=== PATIENT | female | born 1985 | race Caucasian/White ===

== ENCOUNTER 2019-09-29 12:40 | Emergency (ER) | payer OTHER ==
[~2019-09-29] VITALS: Ht 172.7 cm; Wt 99.8 kg
--- OUTSIDE RECORDS SUMMARY | 2019-09-29 12:44 | XMS ---
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 Tarun has no Care Guidelines for this patient. Jacki VISIT COUNT (12 MO.) 1 FREDY Nguyễn TOTAL 1 NOTE: Visits indicate total known visits. ED/UCC VISIT TRACKING (12 MO.) 09/29/2019 12:41 [facility] [place] TYPE: Emergency COMPLAINT: - SORE THROAT, COUGH INPATIENT VISIT TRACKING (12 MO.) No inpatient visits to display in this time frame [email or web address]
[2019-09-29] MEDS ORDERED: BUPROPION XL150 MG PO (13:00)
[2019-09-29] MEDS ORDERED: FLUOXETINE HCL20 MG PO (13:01)
[2019-09-29] MEDS ORDERED: NALTREXONE HCL50 MG PO (13:01)
== END 2019-09-29 14:42 | disposition home or self-care (01) ==
LOC: ED 12:40
DX: J06.9 Acute upper respiratory infection, unspecified (principal); L60.0 Ingrowing nail; F17.200 Nicotine dependence, unspecified, uncomplicated; Z88.0 Allergy status to penicillin; Z88.5 Allergy status to narcotic agent; Z79.899 Other long term (current) drug therapy
CPT/HCPCS: 99283

== ENCOUNTER 2019-10-08 16:14 | Emergency (ER) | payer OTHER ==
[~2019-10-08] VITALS: Ht 172.7 cm; Wt 99.8 kg
[~2019-10-08 16:14] MED LIST: BUPROPION XL150 MG PO; FLUOXETINE HCL20 MG PO; NALTREXONE HCL50 MG PO
--- OUTSIDE RECORDS SUMMARY | 2019-10-08 16:18 | XMS ---
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 Tarun has no Care Guidelines for this patient. [facility] VIS[facility] (12 MO.) [facility] NOTE: Visits indicate total known visits. ED/C VISIT TRACKING (12 MO.) [facility] COMPLAINT: - FLU SYMPTOMS, NAUSEA 09/29/2019 12:[address] [facility] [facility] [place] TYPE: Emergency COMPLAINT: - SORE THROAT, COUGH DIAGNOSES: - Other usp (current) drug therapy - Allergy status to penicillin - Acute upper respiratory infection, unspecified - Allergy status to narcotic agent status - Ingrowing nail - Nicotine dependence, unspecified, uncomplicated - Cough INPATIENT VISIT TRACKING (12 MO.) No inpatient visits to display in this time frame [email or web address]
[2019-10-08] MEDS ORDERED: DOXYCYCLINE HY100 MG PO (18:04)
[2019-10-08] MEDS ORDERED: TESSALON PERLE100 MG PO (18:04)
== END 2019-10-08 18:15 | disposition home or self-care (01) ==
LOC: ED 16:14
DX: J20.9 Acute bronchitis, unspecified (principal); F17.200 Nicotine dependence, unspecified, uncomplicated
CPT/HCPCS: 71046; 99283-25; 99406

== ENCOUNTER 2023-02-10 08:05 | Emergency (ER) | payer SELFPAY ==
[~2023-02-10] VITALS: Ht 172.7 cm; Wt 88.9 kg
[~2023-02-10 08:05] MED LIST changes: +DOXYCYCLINE HY100 MG PO; +TESSALON PERLE100 MG PO
[2023-02-10] MEDS ORDERED: BACTRIM DS TAB1 EACH PO (09:12)
[2023-02-10] MEDS ORDERED: METRONIDAZOLE500 MG PO (09:12)
[2023-02-10 09:20] VITALS: BP 111/81
== END 2023-02-10 09:20 | disposition home or self-care (01) ==
LOC: ED 08:05
DX: J18.9 Pneumonia, unspecified organism (principal); F17.200 Nicotine dependence, unspecified, uncomplicated; Z88.0 Allergy status to penicillin; Z88.5 Allergy status to narcotic agent
CPT/HCPCS: 71045; 94640; 99406; U0003

== ENCOUNTER 2023-06-28 11:18 | Emergency (ER) | payer OTHER ==
[~2023-06-28] VITALS: Ht 172.7 cm; Wt 79.8 kg
[~2023-06-28 11:18] MED LIST changes: +BACTRIM DS TAB1 EACH PO; +METRONIDAZOLE500 MG PO
[2023-06-28] MEDS ORDERED: CLEOCIN HCL300 MG PO (15:43)
[2023-06-28] MEDS ORDERED: HYDROCODON-ACE1 EA11 PO (15:43)
[2023-06-28 15:49] VITALS: BP 129/86
== END 2023-06-28 15:49 | disposition home or self-care (01) ==
LOC: ED 11:18
DX: K04.7 Periapical abscess without sinus (principal); F17.200 Nicotine dependence, unspecified, uncomplicated; Z88.0 Allergy status to penicillin; Z88.5 Allergy status to narcotic agent
CPT/HCPCS: 99282; A9270

== ENCOUNTER 2024-03-08 16:31 | Emergency (ER) | payer OTHER ==
[~2024-03-08] VITALS: Ht 172.7 cm; Wt 81.0 kg
[~2024-03-08 16:31] MED LIST changes: +CLEOCIN HCL300 MG PO; +HYDROCODON-ACE1 EA11 PO
[2024-03-08] MEDS ORDERED: NALOXONE 4 MG NASAL SPRAY #2 HOME.PACK NAS ONE (19:45)
[2024-03-08 20:13] VITALS: BP 114/70
== END 2024-03-08 20:13 | disposition home or self-care (01) ==
LOC: ED 16:31
DX: T40.411A Poisoning by fentanyl or fentanyl analogs, accidental (unintentional), initial encounter (principal); F17.200 Nicotine dependence, unspecified, uncomplicated; Z88.0 Allergy status to penicillin; Z88.5 Allergy status to narcotic agent
CPT/HCPCS: 99284; J3490